=== PATIENT | female | born 1950 | race Caucasian/White ===

== ENCOUNTER 2019-06-28 08:45 | Day surgery (SDC) | payer MEDICARE, MEDICAID ==
[~2019-06-28] VITALS: Ht 165.1 cm; Wt 49.2 kg
--- NOTE | 2019-06-28 09:20 | NUR ---
BREAK RN: PT WITH C/O DIFFUSE ABD PAIN WITH N/V, INTERMITTANT CONSTIPATION SINCE LAST FALL. WORSENING OVER PAST 3 MO. PT RPTS A 33LB WEIGHT LOSS IN THE PAST 2 MONTHS. PT VERBALIZES "I'M STARVING TO BUT I CAN'T EAT" AFTER EATING PT RPTS SHE VOMITS AND THE ABD PAIN INCREASES. ER PA AT [facility], PT ASSESSMENT POC DISCUSSED AND QUESTIONS ANSWERED.
[2019-06-28] MEDS ORDERED: MORPHINE SULFATE 4 MG/ML, 1ML IVPush PRN ×3 (09:30→18:00)
[2019-06-28] MEDS ORDERED: SODIUM CHLORIDE FLUSH 10ML SYR IVF ONE (09:30)
[2019-06-28] MEDS ORDERED: ONDANSETRON 2MG/ML, 2ML IVPush ONE (09:30)
[2019-06-28] MEDS ORDERED: MORPHINE SULFATE 4 MG/ML, 1ML ONE (09:45)
[2019-06-28] MEDS ORDERED: ONDANSETRON 2MG/ML, 2ML ONE ×3 (09:45→14:13)
[2019-06-28 09:50] LABS: ALANINE AMINOTRANSFERASE 26 U/L (12-78); ALBUMIN 3.6 g/dL (3.4-5.0); ANION GAP 7 mmol/L (5-15); CALCIUM 9.2 mg/dL (8.5-10.1); CHLORIDE 107 mmol/L (98-107); CREATININE 1.04 mg/dL (0.55-1.02)
[2019-06-28 09:52] LABS: ALKALINE PHOSPHATASE 66 U/L (45-117); BILIRUBIN,TOTAL 0.7 mg/dL (0.2-1.0); TOTAL PROTEIN 7.7 g/dL (6.4-8.2)
--- NOTE | 2019-06-28 09:53 | NUR ---
PT REFUSED MORPHINE AND ZOFRAN. NO OTHER NEEDS AT THIS TIME
[2019-06-28 10:01] LABS: BASOPHILS # (AUTO) 0.04 x10^3/uL (0-0.1); BASOPHILS % (AUTO) 0 % (0-1); EOSINOPHILS # (AUTO) 0.07 x10^3/uL (0-0.4); EOSINOPHILS % (AUTO) 1 % (1-7); LYMPHOCYTES # (AUTO) 1.98 x10^3/uL (1-3.4); LYMPHOCYTES % (AUTO) 19 % (22-44); MD NO; MEAN CORPUSCULAR HEMOGLOBIN 31.3 pg (27.0-34.8); MEAN CORPUSCULAR HGB CONC 33.2 g/dL (32.4-35.8); MEAN CORPUSCULAR VOLUME 94.5 fL (80-100); MONOCYTES % (AUTO) 5 % (2-9); NEUTROPHILS # (AUTO) 7.81 x10^3/uL (1.8-6.8); NEUTROPHILS % (AUTO) 75 % (42-75); PLATELET COUNT 297 x10^3/uL (130-400); RED BLOOD COUNT 4.71 x10^6/uL (3.82-5.3); RED CELL DISTRIBUTION WIDTH 13.1 % (9.6-15.2)
--- NOTE | 2019-06-28 10:58 | NUR ---
GIVEN ORAL CONTRAST FOR CT AT 1010
--- NOTE | 2019-06-28 11:09 | NUR ---
PT TOLERATING ORAL CONTRAST. INSTRUCTED FOR UA. CT SOON. VSS
[2019-06-28] MEDS ORDERED: OMNIPAQUE 350 MG/ML, 100ML BOTTLE ONE (11:42)
[2019-06-28 12:02] LABS: MICROSCOPIC INDICATED
[2019-06-28 12:12] LABS: CULTURE INDICATED? YES
[2019-06-28] MEDS ORDERED: LABETALOL 5MG/ML, 20ML IVPush ONE (12:30)
[2019-06-28] MEDS ORDERED: SODIUM CHLORIDE FLUSH 10ML SYR IVF PRN (12:30)
[2019-06-28] MEDS ORDERED: CEFOTETAN PMX 1GM/50ML 50 ML IV ONE (12:30)
[2019-06-28] MEDS ORDERED: LACTATED RINGERS 1,000 ML IV SCH ×4 (12:30→18:00)
[2019-06-28] MEDS ORDERED: ONDANSETRON 2MG/ML, 2ML IVPush PRN ×2 (12:30→18:00)
[2019-06-28] MEDS ORDERED: CEFOTETAN PMX 1GM/50ML 50 ML ONE (12:36)
[2019-06-28] MEDS ORDERED: LABETALOL 5MG/ML, 20ML ONE (12:36)
[2019-06-28] MEDS ORDERED: BUPIVACAINE/PF-EPI 0.5% 1:200K ONE (13:54)
--- NOTE | 2019-06-28 14:02 | NUR ---
Late note: this tech transported pt
[2019-06-28] MEDS ORDERED: CHLORHEXIDINE 15 ML UDC MM ONE (14:08)
[2019-06-28] MEDS ORDERED: FENTANYL PF 250 MCG/5ML ONE (14:12)
[2019-06-28] MEDS ORDERED: DEXAMETHASONE 4 MG/ML, 1ML ONE (14:12)
[2019-06-28] MEDS ORDERED: SUCCINYLCHOLINE 20 MG/ML, 10ML ONE (14:12)
[2019-06-28] MEDS ORDERED: ROCURONIUM 10MG/ML,5ML ONE (14:12)
[2019-06-28] MEDS ORDERED: MIDAZOLAM 1 MG/ML, 2ML ONE (14:12)
[2019-06-28] MEDS ORDERED: PROPOFOL 10 MG/ML, 20ML ONE (14:12)
[2019-06-28 14:20] VITALS: BP 167/76
[2019-06-28] MEDS ORDERED: MEPERIDINE/PF 25MG/ML,1ML IVPush PRN (14:30)
[2019-06-28] MEDS ORDERED: ONDANSETRON 2MG/ML, 2ML IV PRN (14:30)
[2019-06-28] MEDS ORDERED: PROMETHAZINE 25 MG/ML, 1ML IV PRN (14:30)
[2019-06-28] MEDS ORDERED: OXYcodone 5 MG/5 ML ORAL.SOL UDC PO PRN (14:30)
[2019-06-28] MEDS ORDERED: HYDROmorphone 2 MG/ML, 1ML IVPush PRN (14:30)
[2019-06-28] MEDS ORDERED: MIDAZOLAM 1 MG/ML, 2ML IV PRN (14:30)
[2019-06-28] MEDS ORDERED: LABETALOL 5MG/ML, 20ML IV PRN (14:30)
[2019-06-28] MEDS ORDERED: ACETAMINOPHEN 325 MG TABLET PO PRN (14:30)
[2019-06-28] MEDS ORDERED: hydrALAzine 20 MG/ML, 1ML IV PRN (14:30)
[2019-06-28] MEDS ORDERED: CEFOTETAN 1 GM ONE (15:00)
[2019-06-28] MEDS ORDERED: KETOROLAC 30 MG/1 ML ONE (15:07)
[2019-06-28] MEDS ORDERED: hydrALAzine 20 MG/ML, 1ML ONE (15:45)
[2019-06-28] MEDS ORDERED: METOPROLOL 1 MG/ML, 5ML ONE (15:45)
[2019-06-28] MEDS ORDERED: FENTANYL PF 100 MCG/2ML ONE (16:47)
[2019-06-28] MEDS ORDERED: ACETAMINOPHEN 650 MG/20.3 ML UDC ONE (16:47)
[2019-06-28] MEDS ORDERED: OXYcodone 5 MG/5 ML ORAL.SOL UDC ONE (16:48)
[2019-06-28] MEDS: FENTANYL PF 100 MCG/2ML IV PRN ×2 (16:51→16:58)
[2019-06-28 17:55] VITALS: BP 111/65
[2019-06-28] MEDS ORDERED: OXYcodone/APAP 5/325MG TABLET PO PRN (18:00)
[2019-06-28] MEDS ORDERED: OXYC-302 PO (19:47)
[2019-06-28 19:48] VITALS: BP 113/71
== END 2019-06-28 21:00 | disposition home or self-care (01) ==
LOC: ED 09:54 → UNDOADMIN 12:27 → EDIP 12:27 → 4NE 13:48 → EDIP 13:48 → EDSTATUS 16:54 → OUT 18:00 → UNDODISIN 21:00 → OUT 21:00
PROVIDERS: ATTEND Emergency Medicine
DX: K80.10 Calculus of gallbladder with chronic cholecystitis without obstruction (principal); K82.8 Other specified diseases of gallbladder; I10 Essential (primary) hypertension; K59.00 Constipation, unspecified; F12.90 Cannabis use, unspecified, uncomplicated; F17.210 Nicotine dependence, cigarettes, uncomplicated; Z88.5 Allergy status to narcotic agent; Z98.51 Tubal ligation status; Z80.3 Family history of malignant neoplasm of breast
CPT/HCPCS: 36415; 47562; 74177; 76700; 80053; 81001; 83690; 85025; 87086; 88304; 93005; 96374; 96375; 99285; J0330; J0360; J1100; J1885; J2250; J2405; J2704; J3010; J3490; J7120; Q9967; G0378